=== PATIENT | male | born 1995 | race Caucasian/White ===

== ENCOUNTER 2019-07-23 12:20 | Emergency (ER) | payer OTHER ==
[2019-07-23 12:28] VITALS: TEMP 97.9
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
--- NOTE | 2019-07-23 13:54 | CT ---
EXAMINATION TYPE: CT brain wo con DATE OF EXAM: 07/23/2019 COMPARISON: None HISTORY: Fall with LOC, NESS CT DLP: 1100.4 mGycm. Automated Exposure Control for Dose Reduction was Utilized. TECHNIQUE: CT scan of the head is performed without contrast. FINDINGS: There is no acute intracranial hemorrhage, mass effect, or midline shift identified. The ventricles and sulci are within normal limits in size. The globes are intact and the visualized sin uses are clear. Prominent cisterna magna. Slight hyperdensity to the basilar tip likely is technical. IMPRESSION: No acute intracranial hemorrhage, mass effect, or midline shift is seen. There is slight hyperdensity basilar tip which is felt to BE most likely artifactual. However, CTA of the [place] is recommended for further evaluation.
--- NOTE | 2019-07-23 13:59 | XR ---
EXAMINATION TYPE: XR ribs LT w pa chest xray DATE OF EXAM: 07/23/2019 COMPARISON: NONE HISTORY: Pain TECHNIQUE: Frontal view of the chest and 5 views of the left ribs are submitted. FINDINGS: Lungs are clear. There is no pleural effusion or pneumothorax. No overt failure. IMPRESSION: No acute displaced rib fracture.
[2019-07-23 14:37] VITALS: BP 129/75; PULSE 74; RESP 18
--- NOTE | 2019-07-23 15:27 | CT ---
EXAMINATION TYPE: CT angio COW [place] of [place] DATE OF EXAM: 07/23/2019 HISTORY: Abnormal CT COMPARISON: CT brain 07/23/2019, MR a brain 02/15/2011 CT DLP: 660.2 mGycm. Automated Exposure Control for Dose Reduction was Utilized. TECHNIQUE: CTA scan of the neck is performed with IV Contrast, patient injected with 100 mL of Isovu e 370, axial images are obtained, coronal and sagittal reformatted images are reviewed. Three-D recon structed images are created on an independent workstation and reviewed. Source images are reviewed. FINDINGS: Cervical of [place]: Vertebral basilar system appears normal. The basilar tip appears to have normal b ranching pattern. No aneurysmal dilatation is evident. No fusiform prominence is evident. Posterior c erebral vasculature is unremarkable. Internal carotid arteries bifurcate normally into A1 and M1 segm ents. A2 segments are normal. The anterior communicating artery is patent. Posterior communicating ar teries are not identified. IMPRESSION: 1. Normal [place] of [place]
== END 2019-07-23 15:57 | disposition home or self-care (01) ==
LOC: EC 12:20
DX: S20.212A Contusion of left front wall of thorax, initial encounter (principal); S09.90XA Unspecified injury of head, initial encounter; F17.200 Nicotine dependence, unspecified, uncomplicated; Z88.7 Allergy status to serum and vaccine; W10.9XXA Fall (on) (from) unspecified stairs and steps, initial encounter; W50.0XXA Accidental hit or strike by another person, initial encounter; Y93.89 Activity, other specified
CPT/HCPCS: 71101; 70496; 70450; 99284; Q9967

== ENCOUNTER 2020-09-30 18:02 | Emergency (ER) | payer OTHER ==
[2020-09-30 18:10] VITALS: BP 159/98; PULSE 80; RESP 18; TEMP 98.2
[2020-09-30] MEDS ORDERED: KETOROLAC 15 MG/ML 1 ML VIAL IM STA (18:21)
--- NOTE | 2020-09-30 18:42 | ED ---
General Adult HPI - General Chief complaint: Extremity Injury, Upper Stated complaint: L Hand Injury Time Seen by Provider: 09/30/20 18:11 Source: patient, RN notes reviewed Mode of arrival: ambulatory Limitations: no limitations - History of Present Illness Initial comments: 25-year-old male presents to the emergency room for a chief complaint of left hand pain. 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 Patient states that all day he was cutting trees with a saw with his right hand and using his left hand to hold the branches. States he was feeling sharp pains in his wrist at some times. She said throughout the day his hand and wrist aggressively became more painful and stiff. States it hurts to move his wrist. States it hurts to make a fist. Patient denies any loss of sensation in the left hand. Patient has no other complaints at this time including shortness of breath, chest pain, abdominal pain, nausea or vomiting, headache, or visual changes. - Related Data Home Medications Medication Instructions Recorded Confirmed Ibuprofen 800 mg PO Q6H PRN 07/23/19 07/23/19 Allergies Allergy/AdvReac Type Severity Reaction Status Date / Time Tetanus Vaccines and Toxoid Allergy Unknown Verified 09/30/20 18:06 Childhood Review of Systems ROS Statement: Those systems with pertinent positive or pertinent negative responses have been documented in the HPI. ROS Other: All systems not noted in ROS Statement are negative. Past Medical History Past Medical History: No Reported History History of Any Multi-Drug Resistant Organisms: None Reported Past Surgical History: Orthopedic Surgery Past Psychological History: No Psychological Hx Reported Smoking Status: Vaper Past Alcohol Use History: Rare Past Drug Use History: Marijuana General Exam Limitations: no limitations General appearance: alert, in no apparent distress Head exam: Present: atraumatic, normocephalic, normal inspection Eye exam: Present: normal appearance, PERRL, EOMI. Absent: scleral icterus, conjunctival injection, periorbital swelling ENT exam: Present: normal exam, mucous membranes moist Neck exam: Present: normal inspection, full ROM. Absent: tenderness, meningismus, lymphadenopathy Respiratory exam: Present: normal lung sounds bilaterally. Absent: respiratory distress, wheezes, rales, rhonchi, stridor Cardiovascular Exam: Present: regular rate, normal rhythm, normal heart sounds. Absent: systolic murmur, diastolic murmur, rubs, gallop, clicks Extremities exam: Present: tenderness (Tenderness to the dorsal ulnar aspect of the left wrist. No tenderness in the left hand. No tenderness in the snuffbox or volar aspect of the left wrist.), normal capillary refill (Capillary refill less than 2 seconds, radial pulse 2+ in the left upper extremity.), other (Sensation intact left wrist and hand.). Absent: full ROM (Patient has decreased flexion and extension of the left wrist to about 15. Patient able to move all digits. He is unable to make a complete fist secondary to pain.), pedal edema, joint swelling (No edema or erythema of the left hand or wrist.), calf tenderness Course Vital Signs 09/30/20 18:06 Temperature 98.2 F Pulse Rate 80 Respiratory 18 Rate Blood Pressure 159/98 O2 Sat by Pulse 99 Oximetry Medical Decision Making - Medical Decision Making 25-year-old male presents for left hand and wrist pain after working all day with his hands. Tenderness in the dorsal ulnar aspect of the left wrist with pain moving the wrist and hand. Neurovascular status intact.X-ray of the left hand is negative. No fracture seen. X-ray of the left wrist is negative for fracture. Symptoms consistent with overuse injury. He does not have any volar wrist pain or signs of carpal tunnel. He will be wrapped with an Ford wrap and recommended he rest ice and elevate the hand and wrist and take Motrin and Tylenol for pain. He will be given follow-up to orthopedics. He will return for any worsening symptoms. Disposition Clinical Impression: Overuse injury, Wrist pain, left Disposition: HOME SELF-CARE Condition: Good Instructions (If sedation given, give patient instructions): Wrist Injury (ED) Additional Instructions: Please take Motrin and Tylenol for pain. Please rest ice and elevate the left hand and wrist. Use Ford wrap as needed. Follow-up with primary care or orthopedics. Return to the emergency room for any worsening symptoms. Is patient prescribed a controlled substance at d/c from ED?: No Referrals: Ron Olivo MD [STAFF PHYSICIAN] - 1-2 days Time of Disposition: 19:12
--- NOTE | 2020-09-30 18:49 | XR ---
EXAMINATION TYPE: XR hand complete LT DATE OF EXAM: 09/30/2020 COMPARISON: NONE HISTORY: Pain TECHNIQUE: 3 views FINDINGS: Metacarpals are intact. Fingers appear intact. I see no fracture nor dislocation. The carpa l bones appear intact. IMPRESSION: Negative left hand exam. No fracture seen.
--- NOTE | 2020-09-30 18:51 | XR ---
EXAMINATION TYPE: XR wrist complete LT DATE OF EXAM: 09/30/2020 COMPARISON: NONE HISTORY: Pain TECHNIQUE: 4 views FINDINGS: Carpal bones are intact. I see no fracture nor dislocation joint spaces are normal. There a re no erosions. IMPRESSION: Negative left wrist exam.
== END 2020-09-30 19:21 | disposition home or self-care (01) ==
LOC: EC 18:02
DX: S69.82XA Other specified injuries of left wrist, hand and finger(s), initial encounter (principal); M25.532 Pain in left wrist; F17.290 Nicotine dependence, other tobacco product, uncomplicated; Z88.7 Allergy status to serum and vaccine; X58.XXXA Exposure to other specified factors, initial encounter; Y93.89 Activity, other specified
CPT/HCPCS: 73110; 73130; 96372; 99283; J1885